=== PATIENT | female | born 1995 | race Two or more races ===

== ENCOUNTER 2020-06-01 11:47 | Emergency (ER) | payer MEDICAID ==
[~2020-06-01] VITALS: Ht 162.6 cm; Wt 70.4 kg
[2020-06-01 13:59] VITALS: BP 145/89
--- NOTE | 2020-06-01 13:59 | NUR ---
RESULTS ARE BACK AT THIS TIME. CHART UP FOR REHCECK.
== END 2020-06-01 14:45 | disposition home or self-care (01) ==
LOC: ED 13:04
DX: J02.8 Acute pharyngitis due to other specified organisms (principal); Z20.828 Contact with and (suspected) exposure to other viral communicable diseases; B97.89 Other viral agents as the cause of diseases classified elsewhere; R50.9 Fever, unspecified; R05 Cough; R06.00 Dyspnea, unspecified
CPT/HCPCS: 36415; 71045; 87635; 99284